=== PATIENT | male | born 1995 | race Caucasian/White ===

== ENCOUNTER 2019-02-09 21:45 | Emergency (ER) | payer OTHER ==
[2019-02-09 22:31] LABS: EOS % 0.6 % (0.0-4.0); HEMOGLOBIN 14.8 g/dL (13.5-18.0); LYMPH# 1.3 (1.50-4.00); MEAN CELL VOLUME 91 fl (78-100); MEAN CORPUSCULAR HEMOGLOBIN 31 pg (27-31); MEAN CORPUSCULAR HGB CONC 34 g/dL (33-37); MEAN PLATELET VOLUME 9.4 fl (7.4-10.4); MONO # 0.5 (0.20-0.80); NEU # 3.4 (1.40-6.50); PLATELET COUNT 227 K/mm3 (130-400); RED BLOOD COUNT 4.74 M/mm3 (4.20-5.60); RED CELL DISTRIBUTION WIDTH 12.7 % (11.5-14.5); WHITE BLOOD COUNT 5.3 K/mm3 (4.8-10.8)
[2019-02-09 22:47] LABS: ALBUMIN 4.2 g/dL (3.5-5.0); POTASSIUM 3.6 mmol/L (3.5-5.1)
[2019-02-09 22:51] LABS: TOTAL BILIRUBIN 0.3 mg/dL (0.2-1.2)
[2019-02-09 23:02] LABS: PARTIAL THROMBOPLASTIN TIME 24.1 SECONDS (21.0-32.0); PROTHROMBIN TIME 11.9 SECONDS (9.0-12.0)
[2019-02-09 23:14] LABS: PH-URINE 7.5 (5.0 - 8.0); URINE APPEARANCE CLEAR; URINE BILIRUBIN NEGATIVE (NEGATIVE); URINE BLOOD NEGATIVE (NEGATIVE); URINE COLOR YELLOW; URINE GLUCOSE NEGATIVE (NEGATIVE); URINE KETONE NEGATIVE (NEGATIVE); URINE LEUKOCYTE ESTERASE NEGATIVE (NEGATIVE); URINE NITRATE NEGATIVE (NEGATIVE); URINE PROTEIN(semi-quant) NEGATIVE (NEGATIVE); URINE UROBILINOGEN NORMAL (NORMAL); URINE WBC 0-1 /hpf (0-3)
[2019-02-09 23:56] VITALS: BP 100/74
== END 2019-02-09 23:56 | disposition home or self-care (01) ==
LOC: ED 21:45
PROVIDERS: Nurse Practitioner
DX: R00.2 Palpitations (principal); Z88.0 Allergy status to penicillin; Z88.5 Allergy status to narcotic agent; Z86.711 Personal history of pulmonary embolism
CPT/HCPCS: Q9967

== ENCOUNTER 2020-04-18 20:58 | Emergency (ER) | payer BC ==
[~2020-04-18] VITALS: Ht 175.3 cm; Wt 66.7 kg
[2020-04-18] MEDS ORDERED: ASPIRIN E.C. 8181 MG (21:37)
[2020-04-18 21:39] LABS: EOS % 0.2 % (0.0-4.0); HEMATOCRIT 44.3 % (42.0-52.0); HEMOGLOBIN 15.4 g/dL (13.5-18.0); LYMPH# 1.3 (1.50-4.00); MEAN CELL VOLUME 90 fl (78-100); MEAN CORPUSCULAR HEMOGLOBIN 31 pg (27-31); MEAN CORPUSCULAR HGB CONC 35 g/dL (33-37); MEAN PLATELET VOLUME 9.2 fl (7.4-10.4); MONO # 0.4 (0.20-0.80); NEU # 4.8 (1.40-6.50); PLATELET COUNT 253 K/mm3 (130-400); RED BLOOD COUNT 4.94 M/mm3 (4.20-5.60); RED CELL DISTRIBUTION WIDTH 12.4 % (11.5-14.5); WHITE BLOOD COUNT 6.5 K/mm3 (4.8-10.8)
[2020-04-18 21:53] LABS: STREP SCREEN NEGATIVE (NEGATIVE)
[2020-04-18 21:55] LABS: ALBUMIN 5.1 g/dL (3.5-5.0)
[2020-04-18 21:56] LABS: POTASSIUM 3.6 mmol/L (3.5-5.1)
[2020-04-18 21:58] LABS: TOTAL PROTEIN 8.5 g/dL (6.4-8.3)
[2020-04-18 22:00] LABS: PARTIAL THROMBOPLASTIN TIME 19.4 SECONDS (21.0-32.0); PROTHROMBIN TIME 11.5 SECONDS (9.0-12.0); TOTAL BILIRUBIN 0.5 mg/dL (0.2-1.2)
[2020-04-18 23:05] LABS: URINE APPEARANCE CLEAR; URINE BILIRUBIN NEGATIVE (NEGATIVE); URINE BLOOD NEGATIVE (NEGATIVE); URINE COLOR YELLOW; URINE GLUCOSE NEGATIVE (NEGATIVE); URINE KETONE NEGATIVE (NEGATIVE); URINE LEUKOCYTE ESTERASE NEGATIVE (NEGATIVE); URINE NITRATE NEGATIVE (NEGATIVE); URINE PROTEIN(semi-quant) NEGATIVE (NEGATIVE); URINE UROBILINOGEN NORMAL (NORMAL); URINE WBC 0-1 /hpf (0-3)
[2020-04-19 00:55] VITALS: BP 128/72
== END 2020-04-19 00:30 | disposition home or self-care (01) ==
LOC: ED 20:58
PROVIDERS: Nurse Practitioner
DX: R42 Dizziness and giddiness (principal); B34.9 Viral infection, unspecified; R07.89 Other chest pain; F17.200 Nicotine dependence, unspecified, uncomplicated; Z20.828 Contact with and (suspected) exposure to other viral communicable diseases; Z86.711 Personal history of pulmonary embolism; Z88.0 Allergy status to penicillin; Z88.6 Allergy status to analgesic agent; Z79.82 Long term (current) use of aspirin
CPT/HCPCS: J7030; Q9967